=== PATIENT | female | born 1995 | race African-American/Black ===

== ENCOUNTER 2018-10-20 23:12 | Emergency (ER) | payer OTHER ==
--- NOTE | 2018-10-21 00:02 | EDPHY ---
H & P Stated Complaint: Exposure to bacterial meningitis, no symptoms, RA in a dorm Time Seen by Provider: 10/21/18 00:02 HPI/ROS: HPI CHIEF COMPLAINT: Exposure to meningitis. 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 She is advised to come the emergency room for evaluation. She denies any headache, neck pain, stiff neck, fever, denies feeling unwell. She states she was in contact with patients dorm room. She denies any complaints. Patient denies any headache, stiff neck, neck pain, vomiting, fever, feeling unwell. Past Medical History: Denies medical history Past Surgical History: Denies surgical history Social History: Denies drugs alcohol tobacco. Family History: Noncontributory ROS REVIEW OF SYSTEMS: 10 Systems were reviewed and negative with the exception of the elements mentioned in the history of present illness. Exam Constitutional appears well nontoxic triage nursing summary reviewed, vital signs reviewed, awake/alert. Afebrile. Eyes normal conjunctivae and sclera, EOMI, PERRLA. HENT normal inspection, atraumatic, moist mucus membranes, no epistaxis, neck supple/ no meningismus, no raccoon eyes. Respiratory clear to auscultation bilaterally, normal breath sounds, no respiratory distress, no wheezing. Cardiovascular rate normal, regular rhythm, no murmur, no edema, distal pulses normal. Gastrointestinal soft, non-tender, no rebound, no guarding, normal bowel sounds, no distension, no pulsatile mass. Genitourinary no CVA tenderness. Musculoskeletal no midline vertebral tenderness, full range of motion, no calf swelling, no tenderness of extremities, no meningismus, good pulses, neurovascularly intact. Skin pink, warm, & dry, no rash, skin atraumatic. Neurologic normal neurological exam no meningeal signs, no stiff neck, headache , awake, alert and oriented x 3, AAOx3, moves all 4 extremities equally, motor intact, sensory intact, CN II-XII intact, normal cerebellar, normal vision, normal speech. Psychiatric normal mood/affect. Heme/Lymph/Immune no lymphadenopathy. Differential Diagnosis: Includes but is not limited to in a particular order: Meningitis exposure. Plan for dose of ciprofloxacin. Surveillance at home. Patient understands return emergency room if she develops worsening fever, headache, neck pain, stiff neck. Medical Decision Making: Plan for observation. Re-evaluation: 1215AM: Spoke with Infectious Disease Scooter Aquino. He does know of the case of meningitis however this has not been confirmed to be bacterial meningitis there is no diplo-cocci on the Gram stain he tells me. He would not recommend treatment with prophylaxis medication. Would recommend observation. If the patient develops headache, fever, stiff neck return to the ER. 1226AM: Updated patient about this. However patient still would like prophylactic medication. I have ordered the patient ciprofloxacin 1st dose. Again patient comfortable this requesting prophylactic medication. Return precautions discussed with the patient return emergency room if worsening headache, fever, vomiting not doing well she is comfortable this plan. Source: Patient - Personal History LMP (Females 10-55): 22-28 Days Ago Current Tetanus Diphtheria and Acellular Pertussis (TDAP): Yes - Medical/Surgical History Hx Asthma: Yes Hx Chronic Respiratory Disease: No Hx Diabetes: No Hx Cardiac Disease: No Hx Renal Disease: No Hx Cirrhosis: No Hx Alcoholism: No Hx HIV/AIDS: No Hx Splenectomy or Spleen Trauma: No Other PMH: heart murmur, asthma - Social History Smoking Status: Never smoked Constitutional: Initial Vital Signs Temperature (C) 36.8 C 10/20/18 23:18 Heart Rate 81 10/20/18 23:18 Respiratory Rate 16 10/20/18 23:18 Blood Pressure 132/77 H 10/20/18 23:18 O2 Sat (%) 96 10/20/18 23:18 O2 Delivery Mode Room Air Allergies/Adverse Reactions: No Known Allergies Allergy (Verified 10/20/18 23:21) Home Medications: Medication Instructions Recorded NK [No Known Home Meds] 11/14/15 Departure - Departure Disposition: Home, Routine, Self-Care Clinical Impression: Exposure to meningitis Condition: Good Instructions: Viral Meningitis (ED), Bacterial Meningitis (ED) Additional Instructions: 1. Return to the emergency room if develops high fever, headache, stiff neck, not doing well 2. Stay well-hydrated Referrals: NONE *PRIMARY CARE P,. [Primary Care Provider] - As per Instructions
[2018-10-21] MEDS ORDERED: CIPROFLOXACIN 500 MG TAB PO ONE (00:21)
[2018-10-21 00:33] VITALS: BP 123/77
== END 2018-10-21 00:31 | disposition home or self-care (01) ==
DX: Z20.811 Contact with and (suspected) exposure to meningococcus (principal)